=== PATIENT | female | born 1975 | race Two or more races ===

== ENCOUNTER 2022-07-27 19:49 | Emergency (ER) | payer OTHER ==
[~2022-07-27] VITALS: Ht 175.3 cm; Wt 108.9 kg
--- NOTE | 2022-07-27 20:55 | NUR ---
BIBSELF WITH CC OF BACK PAIN RADIATING TO SACRAL AREA X1 WEEK. PT CLAIMED IT HAPPENED WHEN SHE WAS REPOSITIONING THE PATIENT. PT IS AOX4, ABLE TO MAKE NEEDS KNOWN. VITALS CHECKED. PAIN SCALE 8/10
[2022-07-27] MEDS ORDERED: KETOROLAC TROMETHAMINE INJ 60 MG/2 ML VIAL IM ONE (21:00)
--- NOTE | 2022-07-27 21:00 | NUR ---
XR AT BEDSIDE
[2022-07-27] MEDS ORDERED: KETOROLAC TROMETHAMINE INJ 30 MG/ML VIAL ONE (21:08)
[2022-07-27] MEDS ORDERED: IBUP-1955 PO (22:04)
[2022-07-27] MEDS ORDERED: CYCL10TA9 PO (22:04)
--- NOTE | 2022-07-27 22:11 | NUR ---
Patient discharged to home in stable condition. Written and verbal after care instructions given. Patient verbalizes understanding of instruction.
[2022-07-27 22:12] VITALS: BP 129/88
== END 2022-07-27 22:12 | disposition home or self-care (01) ==
LOC: ER 19:54 → EDSEX 19:54 → ER 22:12
DX: S29.012A Strain of muscle and tendon of back wall of thorax, initial encounter (principal); S39.012A Strain of muscle, fascia and tendon of lower back, initial encounter; Z90.89 Acquired absence of other organs; Z90.49 Acquired absence of other specified parts of digestive tract; X58.XXXA Exposure to other specified factors, initial encounter; Y93.89 Activity, other specified; Y92.89 Other specified places as the place of occurrence of the external cause; Y99.8 Other external cause status
CPT/HCPCS: 99284; 96372; 72110; 72070; J1885

== ENCOUNTER 2023-06-27 02:56 | Emergency (ER) | payer OTHER ==
[~2023-06-27] VITALS: Ht 175.3 cm; Wt 104.3 kg
[~2023-06-27 02:56] MED LIST: CYCL10TA9 PO; IBUP-1955 PO
[2023-06-27] MEDS ORDERED: IBUPROFEN 400 MG TABLET ONE (03:35)
[2023-06-27] MEDS ORDERED: ACETAMINOPHEN ES 500 MG TABLET ONE (03:35)
[2023-06-27] MEDS: IBUPROFEN 400 MG TABLET PO ONE (03:38)
[2023-06-27] MEDS: ACETAMINOPHEN ES 500 MG TABLET PO ONE (03:38)
[2023-06-27 04:09] VITALS: BP 132/89; TEMP 98.8; O2SAT 97
== END 2023-06-27 04:10 | disposition home or self-care (01) ==
LOC: ER 03:03
DX: S09.8XXA Other specified injuries of head, initial encounter (principal); Z90.49 Acquired absence of other specified parts of digestive tract; Z87.42 Personal history of other diseases of the female genital tract; Y04.2XXA Assault by strike against or bumped into by another person, initial encounter; Y93.89 Activity, other specified; Y92.238 Other place in hospital as the place of occurrence of the external cause; Y99.8 Other external cause status
CPT/HCPCS: 70450-TC; 70486-TC

== ENCOUNTER 2024-07-03 19:27 | Emergency (ER) | payer OTHER ==
[~2024-07-03] VITALS: Ht 175.3 cm; Wt 108.9 kg
[2024-07-03 19:45] VITALS: BP 146/92; TEMP 97.9; O2SAT 99
[2024-07-03] MEDS ORDERED: AMOX-430 PO (19:48)
[2024-07-03] MEDS: TDAP [DIPH/PERTUSSIS/TET] 0.5 ML VIAL IM ONE (20:00)
[2024-07-03] MEDS ORDERED: TDAP [DIPH/PERTUSSIS/TET] 0.5 ML VIAL IM ONE (20:10)
== END 2024-07-03 20:22 | disposition home or self-care (01) ==
LOC: ER 19:37
DX: S40.871A Other superficial bite of right upper arm, initial encounter (principal); E28.2 Polycystic ovarian syndrome; Z90.49 Acquired absence of other specified parts of digestive tract; Z90.89 Acquired absence of other organs; Z87.42 Personal history of other diseases of the female genital tract; Y04.1XXA Assault by human bite, initial encounter; Y93.89 Activity, other specified; Y92.89 Other specified places as the place of occurrence of the external cause; Y99.0 Civilian activity done for income or pay
CPT/HCPCS: 90715